=== PATIENT | male | born 1950 | race Caucasian/White ===

== ENCOUNTER 2016-08-09 08:17 | Day surgery (SDC) | payer OTHER ==
[~2016-08-09 08:17] MED LIST: PROPOFOL 500 MG/50 ML EMU IV ONE
[2016-08-09 10:47] VITALS: BP 140/87; PULSE 50; RESP 20; TEMP 96.4; O2SAT 97
== END 2016-08-09 11:00 | disposition home or self-care (01) ==
LOC: SURG 08:17
PROVIDERS: ATTEND Surgery
DX: Z12.11 Encounter for screening for malignant neoplasm of colon (principal); K57.30 Diverticulosis of large intestine without perforation or abscess without bleeding; D12.0 Benign neoplasm of cecum; K62.1 Rectal polyp
CPT/HCPCS: 45380; 45385; 88305; J2704